=== PATIENT | female | born 1970 | race Caucasian/White ===

== ENCOUNTER 2016-09-18 06:59 | Day surgery (SDC) | payer OTHER ==
[~2016-09-18] VITALS: Ht 170.2 cm; Wt 99.8 kg
[~2016-09-18 06:59] MED LIST: AMBIEN CR12.5 MG PO; AMBIEN10 MG PO; ATIVAN1 MG PO; BENADRYL25 MG PO; BIAXIN500 MG PO; BIOTIN2500 MCG PO; CALTRATE 600600 MG PO; CARAFATE1 GM PO; CELLCEPT500 MG PO; CIPRO250 MG PO; CLARITIN10 MG PO; CLEOCIN300 MG PO; COUMADIN10 MG PO; COUMADIN7.5 MG PO; CYMBALTA60 MG PO; Cellcept PO; Claritin,Alavart PO; DAILY VITAMIN1 EAC8 PO; DESYREL100 MG PO; DEXILANT60 MG PO; Ditropan PO; ELAVIL25 MG PO; ERGOCALCIF50000 UNIT PO; FLINTSTONES M300 MCG PO; FLOMAX0.4 MG PO; HYDROCODON-ACE1 EAC8 PO; LEVOTHYROXINE100 MCG PO; LOVENOX120 MG/0.8 SC; Levothroid,Synthroid PO; MAXALT10 MG PO; METHOCARBAMOL500 MG PO; NORCO 5/3251 TABLET PO; OXYCODONE HCL10 MG PO; PERCOCET 5/31 TABLET PO; PREDNISONE10 MG PO; PROGRAF1 MG PO; PROMETHAZINE HC25 M1 PO; PSEUDOEPHEDRINE30 MG PO; Percocet 7.5/325,End PO; Prograf PO; SALINE NOSE SPR45 M1 BOTH NARES; SUDAFED 12-HOU120 MG PO; TIZANIDINE HCL2 MG PO; TOPAMAX50 MG PO; TROKENDI XR200 MG PO; VERAPAMIL HCL120 M1 PO; VITAMIN B125000 MCG PO; VITAMIN D5000 UNIT PO; VOLTAREN 1% GE100 GM TP; WARFARIN SODIU7.5 MG PO; WARFARIN SODIUM10 MG PO; ZITHROMAX Z-PA250 MG PO; ZOFRAN4 MG PO
[2016-09-18 08:06] VITALS: BP 112/59
[2016-09-18 10:59] VITALS: BP 136/80
[2016-09-18 12:00] VITALS: BP 11/56; BP 111/56
[2016-09-18 14:10] VITALS: BP 115/67
== END 2016-09-18 14:30 | disposition home or self-care (01) ==
LOC: SDC 06:59
DX: N20.2 Calculus of kidney with calculus of ureter (principal); M54.5 Low back pain; K21.9 Gastro-esophageal reflux disease without esophagitis
CPT/HCPCS: 74000; 76000; 85610; C1769; C1876; C1894; J1100; J1580; J1885; J2250; J2405; J3010; J7050

== ENCOUNTER 2016-10-06 14:53 | Inpatient (IN) | payer OTHER ==
[~2016-10-06] VITALS: Ht 172.7 cm; Wt 100.3 kg
[2016-10-06 15:25] LABS: EOSINOPHIL (%) 0.7 % (0-5); EOSINOPHIL COUNT 0.1 K/uL (0-0.3); HEMATOCRIT 43.2 % (36.0-46.0); IMMATURE GRANULOCYTE (%) 0.3 % (0.0-0.7); IMMATURE GRANULOCYTE COUNT 0.2 K/uL; LYMPHOCYTE COUNT 1.6 K/uL (1.0-2.8); MCH 29.3 PG (29.0-34.0); MCHC 32.9 G/DL (30.0-36.0); MCV 89.1 FL (83-99); MEAN PLAT.VOLUME 11.5 uM^3 (9.5-12.4); MONOCYTE (%) 6.7 % (3-12); MONOCYTE COUNT 0.5 K/uL (0-0.8); NEUTROPHIL COUNT 4.7 K/uL (1.8-6.4); PLATELET COUNT 265 K/uL (156-360); RBC DIS.WIDTH-SD 44.5 % (39-53); RED BLOOD COUNT 4.85 M/uL (3.80-5.20)
[2016-10-06 15:32] LABS: WHITE BLOOD COUNT 6.9 K/uL (4.1-10.2)
[2016-10-06 15:33] LABS: CHLORIDE 107 mEq/L (99-109); POTASSIUM 4.3 mEq/L (3.7-5.4); SODIUM 139 mEq/L (136-147)
[2016-10-06 15:35] LABS: GLUCOSE 177 mg/dL (70-99)
[2016-10-06 15:36] LABS: ANION GAP 11 MEQ/L (2-14)
[2016-10-06 15:39] LABS: GFR ESTIMATE (CALCULATED) > 59 mL/min/
[2016-10-06 15:40] LABS: UREA NITROGEN (BUN) 23 mg/dL (9-23)
[2016-10-06 16:58] LABS: PTT 39.5 (25-32)
[2016-10-06 17:43] LABS: PROTHROMBIN TIME 31.2 (9.2-11.2)
[2016-10-06] MEDS ORDERED: COUMADIN5 MG PO (19:46)
[2016-10-06] MEDS ORDERED: PERCOCET 7.51 TABLET PO (19:47)
[2016-10-06] MEDS ORDERED: ZOFRAN4 MG PO (19:48)
[2016-10-06 19:52] LABS: COLOR RED ((YELLOW)); SPECIFIC GRAVITY 1.015 (1.000-1.030)
[2016-10-06 19:53] LABS: ADD MIUA? YES; BILIRUBIN NEGATIVE; BLOOD LARGE; GLUCOSE (STRIP) NEGATIVE; KETONES MODERATE; LEUKOCYTES NEGATIVE; NITRITE NEGATIVE; PH, URINE 6.5 (5-8); PROTEIN (STRIP) 300; UROBILINOGEN 0.2 MG/DL (0.2-1.0)
[2016-10-06 19:54] LABS: RED BLOOD CELLS TNTC /HPF (0-5); UCUL ADDED? YES
[2016-10-06 23:59] VITALS: BP 142/77
[2016-10-07 04:20] VITALS: BP 129/78
[2016-10-07 07:15] LABS: INTER. NORMALIZED RATIO 2.9
[2016-10-07 07:21] LABS: EOSINOPHIL (%) 4.2 % (0-5); EOSINOPHIL COUNT 0.3 K/uL (0-0.3); HEMATOCRIT 35.9 % (36.0-46.0); IMMATURE GRANULOCYTE (%) 0.2 % (0.0-0.7); LYMPHOCYTE COUNT 2.6 K/uL (1.0-2.8); MCH 29.8 PG (29.0-34.0); MCHC 33.1 G/DL (30.0-36.0); MCV 89.8 FL (83-99); MONOCYTE (%) 11.1 % (3-12); MONOCYTE COUNT 0.7 K/uL (0-0.8); NEUTROPHIL (%) 44.6 % (45-76); NEUTROPHIL COUNT 2.9 K/uL (1.8-6.4); WHITE BLOOD COUNT 6.5 K/uL (4.1-10.2)
[2016-10-07 07:28] LABS: ALKALINE PHOSPHATASE 109 IU/L (3-129); ANION GAP 8 MEQ/L (2-14); CHLORIDE 113 MEQ/L (99-109); GFR ESTIMATE (CALCULATED) > 59 mL/min/; POTASSIUM 3.9 MEQ/L (3.7-5.4); SAMPLE HEMOLYSIS CHECK 0; SAMPLE ICTERIC CHECK 0; SAMPLE LIPEMIA CHECK 0; SODIUM 142 MEQ/L (136-147); TOTAL BILIRUBIN 0.5 MG/DL (0.0-1.0); UREA NITROGEN (BUN) 16 mg/dL (9-23)
[2016-10-07 07:29] LABS: GLUCOSE 107 mg/dL (70-99)
[2016-10-07 07:44] VITALS: BP 144/75
[2016-10-07 08:30] LABS: MEAN PLAT.VOLUME 11.7 uM^3 (9.5-12.4); PLAT.SUFFICIENCY ADEQUATE; PLATELET COUNT 208 K/uL (156-360); USER ID CL
[2016-10-07 11:41] VITALS: BP 124/63
[2016-10-07 11:59] LABS: URIC ACID 5.1 mg/dL (3.1-9.2)
[2016-10-07 15:41] VITALS: BP 127/67
[2016-10-07 23:22] VITALS: BP 143/86
[2016-10-08 06:22] LABS: EOSINOPHIL (%) 3.7 % (0-5); EOSINOPHIL COUNT 0.2 K/uL (0-0.3); IMMATURE GRANULOCYTE (%) 0.2 % (0.0-0.7); LYMPHOCYTE COUNT 2.6 K/uL (1.0-2.8); MCH 28.8 PG (29.0-34.0); MCHC 31.8 G/DL (30.0-36.0); MCV 90.5 FL (83-99); MEAN PLAT.VOLUME 11.5 uM^3 (9.5-12.4); MONOCYTE COUNT 0.7 K/uL (0-0.8); NEUTROPHIL COUNT 2.7 K/uL (1.8-6.4); PLATELET COUNT 207 K/uL (156-360); RBC DIS.WIDTH-CV 14.1 % (11.8-14.6); RBC DIS.WIDTH-SD 46.6 % (39-53); WHITE BLOOD COUNT 6.2 K/uL (4.1-10.2)
[2016-10-08 06:47] LABS: ANION GAP 5 MEQ/L (2-14); CHLORIDE 115 MEQ/L (99-109); GFR ESTIMATE (CALCULATED) > 59 mL/min/; GLUCOSE 108 mg/dL (70-99); POTASSIUM 3.7 MEQ/L (3.7-5.4); SAMPLE HEMOLYSIS CHECK 0; SAMPLE ICTERIC CHECK 0; SAMPLE LIPEMIA CHECK 0; SODIUM 143 MEQ/L (136-147); UREA NITROGEN (BUN) 8 mg/dL (9-23)
[2016-10-08 07:00] LABS: INTER. NORMALIZED RATIO 2.9; PROTHROMBIN TIME 30.1 (9.2-11.2)
[2016-10-08 07:14] VITALS: BP 147/75
[2016-10-08 16:20] VITALS: BP 117/67
[2016-10-09] VITALS: BP 110/64
[2016-10-09 07:38] VITALS: BP 116/58
[2016-10-09 10:24] LABS: PROTHROMBIN TIME 20.5 (9.2-11.2)
[2016-10-09 11:20] LABS: HEMATOCRIT 36.7 % (36.0-46.0); MCV 90.6 FL (83-99)
[2016-10-09 18:29] VITALS: BP 120/81
[2016-10-09 22:58] VITALS: BP 134/63
[2016-10-10 03:24] VITALS: BP 115/58
[2016-10-10 07:15] VITALS: BP 144/89
[2016-10-10 07:25] LABS: EOSINOPHIL (%) 2.7 % (0-5); EOSINOPHIL COUNT 0.2 K/uL (0-0.3); HEMATOCRIT 37.9 % (36.0-46.0); IMMATURE GRANULOCYTE (%) 0.1 % (0.0-0.7); LYMPHOCYTE COUNT 3.3 K/uL (1.0-2.8); MCH 28.3 PG (29.0-34.0); MCHC 31.1 G/DL (30.0-36.0); MCV 90.9 FL (83-99); MEAN PLAT.VOLUME 11.7 uM^3 (9.5-12.4); MONOCYTE (%) 9.6 % (3-12); MONOCYTE COUNT 0.7 K/uL (0-0.8); NEUTROPHIL (%) 39.8 % (45-76); NEUTROPHIL COUNT 2.8 K/uL (1.8-6.4); PLATELET COUNT 206 K/uL (156-360); RBC DIS.WIDTH-CV 14.4 % (11.8-14.6); RBC DIS.WIDTH-SD 46.9 % (39-53); RED BLOOD COUNT 4.17 M/uL (3.80-5.20)
[2016-10-10 07:27] LABS: INTER. NORMALIZED RATIO 1.6; PROTHROMBIN TIME 16.1 (9.2-11.2)
[2016-10-10 07:51] LABS: ALKALINE PHOSPHATASE 108 IU/L (3-129); ANION GAP 8 MEQ/L (2-14); CHLORIDE 110 MEQ/L (99-109); GFR ESTIMATE (CALCULATED) > 59 mL/min/; GLUCOSE 94 mg/dL (70-99); POTASSIUM 3.6 MEQ/L (3.7-5.4); SAMPLE HEMOLYSIS CHECK 0; SAMPLE ICTERIC CHECK 0; SAMPLE LIPEMIA CHECK 0; SODIUM 144 MEQ/L (136-147); TOTAL BILIRUBIN 0.6 MG/DL (0.0-1.0); UREA NITROGEN (BUN) 6 mg/dL (9-23)
[2016-10-10 11:18] VITALS: BP 130/69
[2016-10-10 15:50] VITALS: BP 110/76
== END 2016-10-10 16:06 | disposition home or self-care (01) | DRG 854 ==
LOC: EME 14:53 → EDOF 22:09 → 5EAST 22:09
PROVIDERS: Emergency Medicine; Hospitalist; Internal Medicine
PROC: BT161ZZ Fluoroscopy of Right Ureter using Low Osmolar Contrast (ICD-10-PCS; principal; 2016-10-08)
PROC: 0TC68ZZ Extirpation of Matter from Right Ureter, Via Natural or Artificial Opening Endoscopic (ICD-10-PCS; principal; 2016-10-08)
PROC: 0TJB8ZZ Inspection of Bladder, Via Natural or Artificial Opening Endoscopic (ICD-10-PCS; principal; 2016-10-08)
PROC: 0TJ94ZZ Inspection of Ureter, Percutaneous Endoscopic Approach (ICD-10-PCS; principal; 2016-10-08)
DX: A41.9 Sepsis, unspecified organism (principal); N20.1 Calculus of ureter; N13.30 Unspecified hydronephrosis; Z94.4 Liver transplant status; F33.9 Major depressive disorder, recurrent, unspecified; N39.0 Urinary tract infection, site not specified; I95.9 Hypotension, unspecified; E03.9 Hypothyroidism, unspecified; M81.0 Age-related osteoporosis without current pathological fracture; E66.9 Obesity, unspecified; M19.90 Unspecified osteoarthritis, unspecified site; I10 Essential (primary) hypertension; K21.9 Gastro-esophageal reflux disease without esophagitis; R31.0 Gross hematuria; N20.0 Calculus of kidney; R73.9 Hyperglycemia, unspecified; T45.1X5A Adverse effect of antineoplastic and immunosuppressive drugs, initial encounter; Z79.01 Long term (current) use of anticoagulants; G43.909 Migraine, unspecified, not intractable, without status migrainosus; Z68.33 Body mass index [BMI] 33.0-33.9, adult; Z98.84 Bariatric surgery status; Z88.3 Allergy status to other anti-infective agents; Z88.1 Allergy status to other antibiotic agents; Z86.718 Personal history of other venous thrombosis and embolism; Z86.711 Personal history of pulmonary embolism; Z82.49 Family history of ischemic heart disease and other diseases of the circulatory system; Z66 Do not resuscitate
CPT/HCPCS: 73560; 74176; 74420; 80048; 80053; 81003; 82365 90; 83605; 84550; 85014; 85018; 85025; 85610; 85730; 87040; 87086; 93005; 94010; 99202; 99281; 99285; C1876; J0330; J0744; J1170; J2270; J2405; J2543; J2765; J3010; J3370; J7030; J7050; J7507; J7512; J7517

== ENCOUNTER 2016-10-25 14:20 | Inpatient (IN) | payer OTHER ==
[~2016-10-25] VITALS: Ht 172.7 cm; Wt 97.9 kg
[~2016-10-25 14:20] MED LIST changes: +COUMADIN5 MG PO; +PERCOCET 7.51 TABLET PO
[2016-10-25 14:53] LABS: HEMATOCRIT 36.7 % (36.0-46.0); MCH 29.3 PG (29.0-34.0); MCHC 32.4 G/DL (30.0-36.0); MCV 90.4 FL (83-99); MEAN PLAT.VOLUME 11.6 uM^3 (9.5-12.4); PLATELET COUNT 180 K/uL (156-360); RBC DIS.WIDTH-CV 13.4 % (11.8-14.6); RBC DIS.WIDTH-SD 43.3 % (39-53); RED BLOOD COUNT 4.06 M/uL (3.80-5.20)
[2016-10-25 14:54] LABS: WHITE BLOOD COUNT 16.6 K/uL (4.1-10.2)
[2016-10-25 15:02] LABS: CHLORIDE 105 mEq/L (99-109); POTASSIUM 3.6 mEq/L (3.7-5.4); SODIUM 136 mEq/L (136-147)
[2016-10-25 15:03] LABS: GLUCOSE 181 mg/dL (70-99)
[2016-10-25 15:05] LABS: ANION GAP 12 MEQ/L (2-14)
[2016-10-25 15:07] LABS: GFR ESTIMATE (CALCULATED) > 59 mL/min/
[2016-10-25 15:08] LABS: UREA NITROGEN (BUN) 21 mg/dL (9-23)
[2016-10-25 16:01] LABS: ADD MIUA? YES; BILIRUBIN SMALL; BLOOD LARGE; COLOR AMBER ((YELLOW)); GLUCOSE (STRIP) NEGATIVE; KETONES NEGATIVE; LEUKOCYTES NEGATIVE; NITRITE NEGATIVE; PROTEIN (STRIP) 100; SPECIFIC GRAVITY 1.025 (1.000-1.030)
[2016-10-25 16:29] LABS: BACTERIA RARE /HPF; CALCIUM OXALATE CRYSTALS 2+ /HPF; EPITHELIAL CELLS RARE /HPF; MUCUS 1+ /LPF; RED BLOOD CELLS TNTC /HPF (0-5); UCUL ADDED? NO; WHITE BLOOD CELLS 20-30 /HPF (0-5)
[2016-10-25 16:46] LABS: TOTAL BILIRUBIN 1.8 mg/dL (0.0-1.0)
[2016-10-25 16:47] LABS: ALKALINE PHOSPHATASE 151 IU/L (3-129)
[2016-10-25 16:50] LABS: DIRECT BILIRUBIN 1.1 mg/dL (0.0-0.3)
[2016-10-25 16:51] LABS: LIPASE 414 U/L (1.0-51.0)
[2016-10-25 19:46] LABS: INTER. NORMALIZED RATIO 1.6; PROTHROMBIN TIME 16.3 (9.2-11.2); PTT 34.5 (25-32)
[2016-10-25 20:07] VITALS: BP 138/62
[2016-10-25 22:57] VITALS: BP 105/55
[2016-10-26 03:31] LABS: INFLUENZA A VIRAL ANTIGEN NEGATIVE; INFLUENZA B VIRAL ANTIGEN NEGATIVE
[2016-10-26 03:33] VITALS: BP 107/52
[2016-10-26 07:35] LABS: INTER. NORMALIZED RATIO 1.5; PROTHROMBIN TIME 15.9 (9.2-11.2)
[2016-10-26 07:36] LABS: EOSINOPHIL (%) 0.6 % (0-5); EOSINOPHIL COUNT 0.1 K/uL (0-0.3); HEMATOCRIT 30.9 % (36.0-46.0); IMMATURE GRANULOCYTE (%) 0.4 % (0.0-0.7); IMMATURE GRANULOCYTE COUNT 0.1 K/uL; LYMPHOCYTE COUNT 1.1 K/uL (1.0-2.8); MCH 29.4 PG (29.0-34.0); MCV 91.7 FL (83-99); MEAN PLAT.VOLUME 11.2 uM^3 (9.5-12.4); MONOCYTE (%) 7.9 % (3-12); MONOCYTE COUNT 0.9 K/uL (0-0.8); NEUTROPHIL (%) 81.7 % (45-76); NEUTROPHIL COUNT 9.4 K/uL (1.8-6.4); PLATELET COUNT 142 K/uL (156-360); RBC DIS.WIDTH-CV 13.6 % (11.8-14.6); RBC DIS.WIDTH-SD 45.4 % (39-53); RED BLOOD COUNT 3.37 M/uL (3.80-5.20)
[2016-10-26 07:39] LABS: WHITE BLOOD COUNT 11.5 K/uL (4.1-10.2)
[2016-10-26 07:44] LABS: ALKALINE PHOSPHATASE 105 IU/L (3-129); ANION GAP 8 MEQ/L (2-14); CHLORIDE 110 MEQ/L (99-109); GFR ESTIMATE (CALCULATED) > 59 mL/min/; POTASSIUM 3.2 MEQ/L (3.7-5.4); SAMPLE HEMOLYSIS CHECK 0; SAMPLE ICTERIC CHECK 0; SAMPLE LIPEMIA CHECK 0; SODIUM 139 MEQ/L (136-147); UREA NITROGEN (BUN) 16 mg/dL (9-23)
[2016-10-26 08:02] LABS: DIRECT BILIRUBIN 0.6 mg/dL (0.0-0.3); GLUCOSE 109 mg/dL (70-99); TOTAL BILIRUBIN 1.1 MG/DL (0.0-1.0)
[2016-10-26 08:13] VITALS: BP 129/45
[2016-10-26 12:13] VITALS: BP 121/55
[2016-10-26 16:18] VITALS: BP 117/58
[2016-10-26 19:31] VITALS: BP 110/55
[2016-10-26 20:19] LABS: METH RESISTANT S AUREUS PCR POSITIVE (NEGATIVE)
[2016-10-26 20:21] LABS: PROBE CHECK PASS
[2016-10-26 23:20] VITALS: BP 139/59
[2016-10-27 03:57] VITALS: BP 102/55
[2016-10-27 08:14] VITALS: BP 123/62
[2016-10-27 08:20] LABS: HEMATOCRIT 29.4 % (36.0-46.0); MCH 29.5 PG (29.0-34.0); MCHC 32.3 G/DL (30.0-36.0); MCV 91.3 FL (83-99); MEAN PLAT.VOLUME 11.4 uM^3 (9.5-12.4); PLATELET COUNT 173 K/uL (156-360); RBC DIS.WIDTH-CV 13.5 % (11.8-14.6); RBC DIS.WIDTH-SD 44.9 % (39-53); RED BLOOD COUNT 3.22 M/uL (3.80-5.20)
[2016-10-27 08:37] LABS: INTER. NORMALIZED RATIO 2.3
[2016-10-27 08:39] LABS: PROTHROMBIN TIME 23.9 (9.2-11.2)
[2016-10-27 08:45] LABS: ALKALINE PHOSPHATASE 107 IU/L (3-129); ANION GAP 8 MEQ/L (2-14); CHLORIDE 112 MEQ/L (99-109); GFR ESTIMATE (CALCULATED) > 59 mL/min/; GLUCOSE 107 mg/dL (70-99); POTASSIUM 3.4 MEQ/L (3.7-5.4); SAMPLE HEMOLYSIS CHECK 0; SAMPLE ICTERIC CHECK 0; SAMPLE LIPEMIA CHECK 0; SODIUM 141 MEQ/L (136-147); UREA NITROGEN (BUN) 9 mg/dL (9-23)
[2016-10-27 08:49] LABS: TOTAL BILIRUBIN 0.7 MG/DL (0.0-1.0)
[2016-10-27 11:24] VITALS: BP 139/73
[2016-10-27 15:37] VITALS: BP 138/79
[2016-10-27 21:22] VITALS: BP 123/63
[2016-10-27 23:51] VITALS: BP 133/82
[2016-10-28 04:05] VITALS: BP 127/66
[2016-10-28 07:00] LABS: HEMATOCRIT 29.9 % (36.0-46.0); MCH 29.1 PG (29.0-34.0); MCHC 32.4 G/DL (30.0-36.0); MCV 89.8 FL (83-99); MEAN PLAT.VOLUME 11.2 uM^3 (9.5-12.4); PLATELET COUNT 198 K/uL (156-360); RBC DIS.WIDTH-CV 13.2 % (11.8-14.6); RBC DIS.WIDTH-SD 43.3 % (39-53); RED BLOOD COUNT 3.33 M/uL (3.80-5.20); WHITE BLOOD COUNT 9.5 K/uL (4.1-10.2)
[2016-10-28 07:21] LABS: INTER. NORMALIZED RATIO 3.2; PROTHROMBIN TIME 33.8 (9.2-11.2)
[2016-10-28 07:25] LABS: ANION GAP 8 MEQ/L (2-14); CHLORIDE 113 MEQ/L (99-109); GFR ESTIMATE (CALCULATED) > 59 mL/min/; GLUCOSE 96 mg/dL (70-99); LIPASE 16 U/L (1.0-51.0); POTASSIUM 3.4 MEQ/L (3.7-5.4); SAMPLE HEMOLYSIS CHECK 0; SAMPLE ICTERIC CHECK 0; SAMPLE LIPEMIA CHECK 0; SODIUM 141 MEQ/L (136-147); UREA NITROGEN (BUN) 8 mg/dL (9-23)
[2016-10-28 07:29] LABS: EOSINOPHIL (%) 1.5 % (0-5); EOSINOPHIL COUNT 0.1 K/uL (0-0.3); IMMATURE GRANULOCYTE (%) 0.2 % (0.0-0.7); LYMPHOCYTE COUNT 1.7 K/uL (1.0-2.8); MONOCYTE (%) 6.9 % (3-12); MONOCYTE COUNT 0.7 K/uL (0-0.8); NEUTROPHIL (%) 73.2 % (45-76)
[2016-10-28 07:57] VITALS: BP 132/60
[2016-10-28 10:53] LABS: THEOPHYLLINE < 2.5 MCG/ML (10-20)
[2016-10-28 12:11] VITALS: BP 120/59
[2016-10-28 16:05] VITALS: BP 146/69
[2016-10-28 20:00] VITALS: BP 143/63
[2016-10-28 23:46] VITALS: BP 134/61
[2016-10-29] VITALS (9 sets, daily range): BP systolic 105–131; BP diastolic 56–80
[2016-10-29 09:22] LABS: INTER. NORMALIZED RATIO 2.7; PROTHROMBIN TIME 27.9 (9.2-11.2)
[2016-10-30 04:35] VITALS: BP 118/65
[2016-10-30 06:57] LABS: EOSINOPHIL (%) 0.1 % (0-5); HEMATOCRIT 30.6 % (36.0-46.0); IMMATURE GRANULOCYTE (%) 1.1 % (0.0-0.7); IMMATURE GRANULOCYTE COUNT 0.1 K/uL; INSTRUMENT ABS NEUTROPHIL CT 5.5 K/uL; LYMPHOCYTE COUNT 1.2 K/uL (1.0-2.8); MCH 28.8 PG (29.0-34.0); MEAN PLAT.VOLUME 10.6 uM^3 (9.5-12.4); MONOCYTE (%) 7.1 % (3-12); MONOCYTE COUNT 0.5 K/uL (0-0.8); NEUTROPHIL (%) 75.4 % (45-76); NEUTROPHIL COUNT 5.5 K/uL (1.8-6.4); PLATELET COUNT 246 K/uL (156-360); RBC DIS.WIDTH-CV 13.2 % (11.8-14.6); RBC DIS.WIDTH-SD 43.7 % (39-53); WHITE BLOOD COUNT 7.3 K/uL (4.1-10.2)
[2016-10-30 07:00] LABS: INTER. NORMALIZED RATIO 1.1; PROTHROMBIN TIME 11.5 (9.2-11.2)
[2016-10-30 07:42] LABS: ANION GAP 9 MEQ/L (2-14); CHLORIDE 110 MEQ/L (99-109); GFR ESTIMATE (CALCULATED) > 59 mL/min/; POTASSIUM 3.7 MEQ/L (3.7-5.4); SAMPLE HEMOLYSIS CHECK 0; SAMPLE ICTERIC CHECK 0; SAMPLE LIPEMIA CHECK 0; SODIUM 141 MEQ/L (136-147); UREA NITROGEN (BUN) 7 mg/dL (9-23)
[2016-10-30 08:02] LABS: GLUCOSE 151 mg/dL (70-99)
[2016-10-30 08:07] VITALS: BP 148/92
[2016-10-30 12:32] VITALS: BP 118/76
[2016-10-30] MEDS ORDERED: ZYVOX600 MG PO (12:42)
[2016-10-30 15:53] VITALS: BP 138/88
[2016-10-30 19:30] VITALS: BP 136/72
[2016-10-30 23:14] VITALS: BP 140/82
[2016-10-31 03:21] VITALS: BP 135/77
[2016-10-31 07:15] VITALS: BP 173/83
[2016-10-31 07:40] VITALS: BP 138/86
[2016-10-31 08:28] LABS: INTER. NORMALIZED RATIO 1.1; PROTHROMBIN TIME 11.1 (9.2-11.2)
[2016-10-31 11:30] VITALS: BP 132/80
[2016-10-31 16:56] VITALS: BP 142/78
[2016-10-31 20:00] VITALS: BP 133/60
[2016-11-01] VITALS: BP 122/60
[2016-11-01 04:00] VITALS: BP 147/71
[2016-11-01 07:43] LABS: HEMATOCRIT 33.9 % (36.0-46.0); MCH 28.3 PG (29.0-34.0); MCHC 30.7 G/DL (30.0-36.0); MCV 92.1 FL (83-99); RBC DIS.WIDTH-CV 13.2 % (11.8-14.6); RBC DIS.WIDTH-SD 44.6 % (39-53); RED BLOOD COUNT 3.68 M/uL (3.80-5.20)
[2016-11-01 07:55] LABS: MEAN PLAT.VOLUME 10.4 uM^3 (9.5-12.4)
[2016-11-01 07:58] VITALS: BP 132/74
[2016-11-01 07:59] LABS: ANION GAP 9 MEQ/L (2-14); CHLORIDE 109 MEQ/L (99-109); GFR ESTIMATE (CALCULATED) > 59 mL/min/; MAGNESIUM 1.3 mg/dl (1.3-2.7); POTASSIUM 3.9 MEQ/L (3.7-5.4); SAMPLE HEMOLYSIS CHECK 0; SAMPLE ICTERIC CHECK 0; SAMPLE LIPEMIA CHECK 0; SODIUM 142 MEQ/L (136-147); UREA NITROGEN (BUN) 8 mg/dL (9-23)
[2016-11-01 08:05] LABS: INTER. NORMALIZED RATIO 1.2; PLATELET COUNT 323 K/uL (156-360); PROTHROMBIN TIME 12.5 (9.2-11.2)
[2016-11-01 08:06] LABS: GLUCOSE 106 mg/dL (70-99)
[2016-11-01 10:54] VITALS: BP 122/66
[2016-11-01] MEDS ORDERED: OXYCODONE HCL5 MG PO (11:54)
[2016-11-01] MEDS ORDERED: FLONASE16 G1 BOTH NARES (11:54)
== END 2016-11-01 15:48 | disposition home health service (06) | DRG 603 ==
LOC: EME 14:20 → 2EAST 18:21 → EDOF 18:21 → 2EAST 19:59
PROVIDERS: Hospitalist; Internal Medicine; Internal Medicine Infectious Disease; Nurse Practitioner Family
DX: L03.317 Cellulitis of buttock (principal); N39.0 Urinary tract infection, site not specified; Z94.4 Liver transplant status; L02.31 Cutaneous abscess of buttock; R25.1 Tremor, unspecified; G43.909 Migraine, unspecified, not intractable, without status migrainosus; F32.9 Major depressive disorder, single episode, unspecified; E03.9 Hypothyroidism, unspecified; R31.9 Hematuria, unspecified; E66.9 Obesity, unspecified; E83.51 Hypocalcemia; M81.0 Age-related osteoporosis without current pathological fracture; D69.6 Thrombocytopenia, unspecified; I10 Essential (primary) hypertension; D64.9 Anemia, unspecified; R74.8 Abnormal levels of other serum enzymes; E87.6 Hypokalemia; B95.62 Methicillin resistant Staphylococcus aureus infection as the cause of diseases classified elsewhere; R10.31 Right lower quadrant pain; G89.29 Other chronic pain; R33.9 Retention of urine, unspecified; Z95.828 Presence of other vascular implants and grafts; Z86.711 Personal history of pulmonary embolism; Z79.01 Long term (current) use of anticoagulants; Z86.718 Personal history of other venous thrombosis and embolism; Z98.84 Bariatric surgery status; Z88.1 Allergy status to other antibiotic agents; Z88.8 Allergy status to other drugs, medicaments and biological substances; E73.9 Lactose intolerance, unspecified; Z86.19 Personal history of other infectious and parasitic diseases
CPT/HCPCS: 74177; 80048; 80053; 80076; 80197 90; 80198; 80202; 81003; 83605; 83690; 83735; 85025; 85027; 85610; 85730; 86850; 86900; 86901; 87040; 87070; 87075; 87077; 87147; 87186; 87205; 87502; 87641; 99281; 99285; G0480; J0330; J1100; J1170; J1200; J1885; J2270; J2405; J2543; J3010; J3370; J3430; J7030; J7050; J7507; J7512; J7517; P9017

== ENCOUNTER → 2016-11-13 | Outpatient (CLI) | payer OTHER ==
[~2016-11-13] MED LIST changes: +FLONASE16 G1 BOTH NARES; +OXYCODONE HCL5 MG PO; +ZYVOX600 MG PO
== END | disposition home or self-care (01) ==
LOC: AMB 09:00
DX: L02.31 Cutaneous abscess of buttock (principal); B95.62 Methicillin resistant Staphylococcus aureus infection as the cause of diseases classified elsewhere; Z92.25 Personal history of immunosuppression therapy; Z94.4 Liver transplant status
CPT/HCPCS: 99211

== ENCOUNTER → 2016-11-20 | Outpatient (CLI) | payer OTHER ==
[~2016-11-20] MED LIST changes: +AMOX TR-K CLV1 EAC4 PO; +EXTRA STRENGTH500 M1 PO; +INDERAL80 MG PO; +NASAL DECONGEST30 M4 PO; +ONDANSETRON HCL4 MG PO; +VERAPAMIL HCL120 M2 PO
== END | disposition home or self-care (01) ==
LOC: AMB 12:30
DX: Z09 Encounter for follow-up examination after completed treatment for conditions other than malignant neoplasm (principal); L02.31 Cutaneous abscess of buttock; B95.62 Methicillin resistant Staphylococcus aureus infection as the cause of diseases classified elsewhere
CPT/HCPCS: 99211

== ENCOUNTER 2016-12-02 23:07 | Emergency (ER) | payer OTHER ==
[~2016-12-02] VITALS: Ht 172.7 cm; Wt 91.2 kg
[2016-12-03 00:05] LABS: HEMATOCRIT 44.1 % (36.0-46.0); MCH 27.9 PG (29.0-34.0); MCHC 31.3 G/DL (30.0-36.0); MCV 89.3 FL (83-99); RBC DIS.WIDTH-CV 13.2 % (11.8-14.6); RBC DIS.WIDTH-SD 42.8 % (39-53); RED BLOOD COUNT 4.94 M/uL (3.80-5.20); WHITE BLOOD COUNT 12.2 K/uL (4.1-10.2)
[2016-12-03 00:11] LABS: MEAN PLAT.VOLUME 11.8 uM^3 (9.5-12.4); PLATELET COUNT 277 K/uL (156-360)
[2016-12-03 00:13] LABS: CHLORIDE 109 mEq/L (99-109); POTASSIUM 3.9 mEq/L (3.7-5.4); SODIUM 138 mEq/L (136-147)
[2016-12-03 00:15] LABS: GLUCOSE 132 mg/dL (70-99)
[2016-12-03 00:16] LABS: ANION GAP 12 MEQ/L (2-14)
[2016-12-03 00:19] LABS: GFR ESTIMATE (CALCULATED) 57 mL/min/; UREA NITROGEN (BUN) 17 mg/dL (9-23)
[2016-12-03 01:36] LABS: ADD MIUA? YES; BILIRUBIN NEGATIVE; BLOOD LARGE; GLUCOSE (STRIP) NEGATIVE; KETONES 5; LEUKOCYTES TRACE; NITRITE NEGATIVE; PROTEIN (STRIP) 100; SPECIFIC GRAVITY 1.006 (1.000-1.030); UROBILINOGEN 0.2 MG/DL (0.2-1.0)
[2016-12-03 01:37] LABS: COLOR RED ((YELLOW))
[2016-12-03 01:57] LABS: BACTERIA 1+ /HPF; CASTS NONE SEEN /LPF; CRYSTALS NONE SEEN; EPITHELIAL CELLS RARE /HPF; MUCUS NONE SEEN /LPF; RED BLOOD CELLS TNTC /HPF (0-5); UCUL ADDED? NO
[2016-12-03] MEDS ORDERED: ZOFRAN4 MG PO (02:02)
[2016-12-03] MEDS ORDERED: CIPRO500 MG PO (02:02)
[2016-12-03 03:17] VITALS: BP 111/73
== END 2016-12-03 03:28 | disposition home or self-care (01) ==
LOC: EME 23:07
DX: N30.00 Acute cystitis without hematuria (principal); E86.0 Dehydration; R11.2 Nausea with vomiting, unspecified; R19.7 Diarrhea, unspecified; Z94.4 Liver transplant status; Z98.84 Bariatric surgery status; Z88.2 Allergy status to sulfonamides; Z88.1 Allergy status to other antibiotic agents
CPT/HCPCS: 80048; 81003; 85027; 99281; 99285; J2405; J7030

== ENCOUNTER 2016-12-28 08:00 | Emergency (ER) | payer OTHER ==
[~2016-12-28] VITALS: Ht 172.7 cm; Wt 93.9 kg
[~2016-12-28 08:00] MED LIST changes: +CIPRO500 MG PO
[2016-12-28 09:08] LABS: EOSINOPHIL (%) 0.4 % (0-5); EOSINOPHIL COUNT 0.1 K/uL (0-0.3); HEMATOCRIT 33.8 % (36.0-46.0); IMMATURE GRANULOCYTE (%) 0.7 % (0.0-0.7); IMMATURE GRANULOCYTE COUNT 0.1 K/uL; INSTRUMENT ABS NEUTROPHIL CT 12.6 K/uL; LYMPHOCYTE COUNT 1.5 K/uL (1.0-2.8); MCH 27.2 PG (29.0-34.0); MCHC 31.1 G/DL (30.0-36.0); MCV 87.6 FL (83-99); MONOCYTE (%) 8.6 % (3-12); MONOCYTE COUNT 1.4 K/uL (0-0.8); NEUTROPHIL (%) 80.5 % (45-76); NEUTROPHIL COUNT 12.6 K/uL (1.8-6.4); PLATELET COUNT 221 K/uL (156-360); RBC DIS.WIDTH-CV 13.7 % (11.8-14.6); RBC DIS.WIDTH-SD 43.8 % (39-53); WHITE BLOOD COUNT 15.7 K/uL (4.1-10.2)
[2016-12-28 09:09] LABS: RED BLOOD COUNT 3.86 M/uL (3.80-5.20)
[2016-12-28 09:16] LABS: CHLORIDE 108 mEq/L (99-109); POTASSIUM 3.8 mEq/L (3.7-5.4); SODIUM 135 mEq/L (136-147)
[2016-12-28 09:17] LABS: GLUCOSE 132 mg/dL (70-99)
[2016-12-28 09:19] LABS: ANION GAP 8 MEQ/L (2-14)
[2016-12-28 09:21] LABS: GFR ESTIMATE (CALCULATED) > 59 mL/min/
[2016-12-28 09:22] LABS: UREA NITROGEN (BUN) 13 mg/dL (9-23)
[2016-12-28 09:37] LABS: ADD MIUA? YES; BILIRUBIN SMALL; BLOOD LARGE; COLOR AMBER ((YELLOW)); GLUCOSE (STRIP) NEGATIVE; KETONES NEGATIVE; LEUKOCYTES TRACE; NITRITE NEGATIVE; PROTEIN (STRIP) 100; SPECIFIC GRAVITY 1.019 (1.000-1.030)
[2016-12-28 09:51] LABS: BACTERIA 2+ /HPF; CASTS NONE SEEN /LPF; CRYSTALS NONE SEEN; EPITHELIAL CELLS RARE /HPF; MUCUS NONE SEEN /LPF; RED BLOOD CELLS TNTC /HPF (0-5)
[2016-12-28] MEDS ORDERED: PERCOCET 5/31 TABLET PO (11:54)
[2016-12-28] MEDS ORDERED: CLEOCIN300 MG PO (11:54)
[2016-12-28 12:07] VITALS: BP 117/66
[2016-12-29] MEDS ORDERED: ZOFRAN ODT4 MG PO (13:12)
[2016-12-31] MEDS ORDERED: CLEOCIN300 MG PO (10:10)
[2016-12-31] MEDS ORDERED: ABILIFY5 MG PO (10:15)
== END 2016-12-28 12:18 | disposition home or self-care (01) ==
LOC: EME 08:00
PROVIDERS: Emergency Medicine
DX: L03.317 Cellulitis of buttock (principal); N20.1 Calculus of ureter; N39.0 Urinary tract infection, site not specified; Z87.442 Personal history of urinary calculi; Z86.718 Personal history of other venous thrombosis and embolism; Z86.711 Personal history of pulmonary embolism; Z79.01 Long term (current) use of anticoagulants; Z94.4 Liver transplant status
CPT/HCPCS: 74176; 80048; 81003; 85025; 99281; 99285; J2270; J7030

== ENCOUNTER 2016-12-29 09:11 | Emergency (ER) | payer OTHER ==
[~2016-12-29] VITALS: Ht 172.7 cm; Wt 94.4 kg
[2016-12-29 10:05] LABS: EOSINOPHIL (%) 0.9 % (0-5); EOSINOPHIL COUNT 0.1 K/uL (0-0.3); HEMATOCRIT 34.9 % (36.0-46.0); IMMATURE GRANULOCYTE (%) 0.6 % (0.0-0.7); IMMATURE GRANULOCYTE COUNT 0.1 K/uL; INSTRUMENT ABS NEUTROPHIL CT 13.1 K/uL; LYMPHOCYTE COUNT 1.7 K/uL (1.0-2.8); MCH 27.4 PG (29.0-34.0); MCHC 31.5 G/DL (30.0-36.0); MCV 86.8 FL (83-99); MEAN PLAT.VOLUME 11.3 uM^3 (9.5-12.4); MONOCYTE COUNT 1.1 K/uL (0-0.8); NEUTROPHIL COUNT 13.1 K/uL (1.8-6.4); PLATELET COUNT 256 K/uL (156-360); RBC DIS.WIDTH-CV 13.5 % (11.8-14.6); RBC DIS.WIDTH-SD 43.2 % (39-53); RED BLOOD COUNT 4.02 M/uL (3.80-5.20); WHITE BLOOD COUNT 16.2 K/uL (4.1-10.2)
[2016-12-29 10:41] LABS: CHLORIDE 107 mEq/L (99-109); POTASSIUM 3.9 mEq/L (3.7-5.4); SODIUM 135 mEq/L (136-147)
[2016-12-29 10:43] LABS: GLUCOSE 160 mg/dL (70-99)
[2016-12-29 10:44] LABS: ANION GAP 9 MEQ/L (2-14)
[2016-12-29 10:47] LABS: GFR ESTIMATE (CALCULATED) > 59 mL/min/; UREA NITROGEN (BUN) 11 mg/dL (9-23)
[2016-12-29] MEDS ORDERED: ZOFRAN ODT4 MG PO (13:12)
[2016-12-29 13:20] VITALS: BP 125/66
[2016-12-31] MEDS ORDERED: CLEOCIN300 MG PO (10:10)
[2016-12-31] MEDS ORDERED: ABILIFY5 MG PO (10:15)
== END 2016-12-29 13:33 | disposition home or self-care (01) ==
LOC: EME 09:11
DX: L03.317 Cellulitis of buttock (principal); N20.1 Calculus of ureter; Z86.718 Personal history of other venous thrombosis and embolism; Z86.711 Personal history of pulmonary embolism; Z79.01 Long term (current) use of anticoagulants; Z88.2 Allergy status to sulfonamides; Z88.8 Allergy status to other drugs, medicaments and biological substances; Z87.442 Personal history of urinary calculi
CPT/HCPCS: 76881; 80048; 85025; 99281; 99284

== ENCOUNTER → 2017-01-04 | Outpatient (CLI) | payer OTHER ==
[~2017-01-04] VITALS: Ht 172.7 cm; Wt 92.5 kg
[~2017-01-04] MED LIST changes: +ABILIFY5 MG PO; +ZOFRAN ODT4 MG PO
== END | disposition home or self-care (01) ==
LOC: AMB 07:30
PROC: 0TF4XZZ Fragmentation in Left Kidney Pelvis, External Approach (ICD-10-PCS; principal; 2017-01-04)
DX: N20.0 Calculus of kidney (principal); I10 Essential (primary) hypertension; E03.9 Hypothyroidism, unspecified; F41.8 Other specified anxiety disorders; K21.9 Gastro-esophageal reflux disease without esophagitis; R00.0 Tachycardia, unspecified; Z82.49 Family history of ischemic heart disease and other diseases of the circulatory system; Z83.79 Family history of other diseases of the digestive system
CPT/HCPCS: 74010; J2765

== ENCOUNTER 2017-03-08 13:07 | Day surgery (SDC) | payer OTHER ==
[~2017-03-08] VITALS: Ht 172.7 cm; Wt 93.0 kg
[~2017-03-08 13:07] MED LIST changes: +INDERAL40 MG PO; +VIBRAMYCIN100 MG PO
== END 2017-03-08 14:30 | disposition home or self-care (01) ==
LOC: PAIN 13:07 → SDC 13:30 → PAIN 13:30
PROC: 01513ZZ Destruction of Cervical Nerve, Percutaneous Approach (ICD-10-PCS; principal; 2017-03-08)
DX: M47.812 Spondylosis without myelopathy or radiculopathy, cervical region (principal); F41.9 Anxiety disorder, unspecified; Z94.4 Liver transplant status; K75.4 Autoimmune hepatitis; Z92.25 Personal history of immunosuppression therapy; K21.9 Gastro-esophageal reflux disease without esophagitis; E03.9 Hypothyroidism, unspecified; M46.1 Sacroiliitis, not elsewhere classified; Z98.84 Bariatric surgery status; Z88.1 Allergy status to other antibiotic agents; Z88.2 Allergy status to sulfonamides; Z88.8 Allergy status to other drugs, medicaments and biological substances
CPT/HCPCS: J1030; J1885; J2250; J3010; S0020

== ENCOUNTER 2017-03-25 11:04 | Day surgery (SDC) | payer OTHER ==
[~2017-03-25] VITALS: Ht 172.7 cm; Wt 92.5 kg
[~2017-03-25 11:04] MED LIST changes: +CENTRUM SILVER1 EAC3 PO
== END 2017-03-25 13:09 | disposition home or self-care (01) ==
LOC: PAIN 11:04
DX: M47.812 Spondylosis without myelopathy or radiculopathy, cervical region (principal); M54.2 Cervicalgia; R51 Headache; K75.4 Autoimmune hepatitis; F41.8 Other specified anxiety disorders; K21.9 Gastro-esophageal reflux disease without esophagitis; E03.9 Hypothyroidism, unspecified; E66.9 Obesity, unspecified; Z68.31 Body mass index [BMI] 31.0-31.9, adult; Z94.4 Liver transplant status; Z86.718 Personal history of other venous thrombosis and embolism; Z79.891 Long term (current) use of opiate analgesic; Z98.84 Bariatric surgery status
CPT/HCPCS: J1030; J2250; J3010; S0020

== ENCOUNTER 2017-04-29 07:41 | Day surgery (SDC) | payer OTHER ==
[~2017-04-29] VITALS: Ht 172.7 cm; Wt 92.5 kg
[~2017-04-29 07:41] MED LIST changes: +FLONASE ALLERG9.9 ML BOTH NARES; +XYZAL5 MG PO
== END 2017-04-29 09:20 | disposition home or self-care (01) ==
LOC: PAIN 07:41 → SDC 08:15 → PAIN 09:20
DX: M53.3 Sacrococcygeal disorders, not elsewhere classified (principal); M46.1 Sacroiliitis, not elsewhere classified; M47.816 Spondylosis without myelopathy or radiculopathy, lumbar region; M47.812 Spondylosis without myelopathy or radiculopathy, cervical region; M79.1 Myalgia; F41.8 Other specified anxiety disorders; K21.9 Gastro-esophageal reflux disease without esophagitis; E03.9 Hypothyroidism, unspecified; Z94.4 Liver transplant status; Z98.84 Bariatric surgery status; K75.4 Autoimmune hepatitis; Z79.891 Long term (current) use of opiate analgesic; Z79.01 Long term (current) use of anticoagulants
CPT/HCPCS: J1030; J2250; J2405; J3010; S0020

== ENCOUNTER 2017-05-11 06:39 | Inpatient (IN) | payer OTHER ==
[~2017-05-11] VITALS: Ht 172.7 cm; Wt 94.3 kg
[~2017-05-11 06:39] MED LIST changes: +FEOSOL325 MG PO; +LOVENOX100 MG/1 M SC; +PROTONIX40 MG PO
[2017-05-11 07:58] VITALS: BP 126/74
[2017-05-11 14:51] VITALS: BP 126/61
[2017-05-11 15:30] VITALS: BP 117/58
[2017-05-11 20:04] VITALS: BP 114/58
[2017-05-11 22:00] VITALS: BP 114/58
[2017-05-12] VITALS: BP 97/53
[2017-05-12 04:10] VITALS: BP 90/49
[2017-05-12 05:42] LABS: HEMATOCRIT 30.5 % (36.0-46.0); MCV 84.5 FL (83-99)
[2017-05-12 05:59] LABS: ANION GAP 9 MEQ/L (2-14); CHLORIDE 107 MEQ/L (99-109); GFR ESTIMATE (CALCULATED) > 59 mL/min/; GLUCOSE 108 mg/dL (70-99); POTASSIUM 3.6 MEQ/L (3.7-5.4); SAMPLE HEMOLYSIS CHECK 0; SAMPLE ICTERIC CHECK 0; SAMPLE LIPEMIA CHECK 0; SODIUM 139 MEQ/L (136-147); UREA NITROGEN (BUN) 12 mg/dL (9-23)
[2017-05-12 06:10] LABS: INTER. NORMALIZED RATIO 1.1; PROTHROMBIN TIME 11.7 SEC (10.2-12.9)
[2017-05-12 08:29] VITALS: BP 127/56
[2017-05-12 12:00] VITALS: BP 125/55; BP 126/64
[2017-05-12 16:04] VITALS: BP 111/57
[2017-05-12 19:49] VITALS: BP 124/58
[2017-05-13 00:04] VITALS: BP 85/50
[2017-05-13 02:52] VITALS: BP 116/56
[2017-05-13 07:31] LABS: HEMATOCRIT 32.9 % (36.0-46.0); MCV 83.1 FL (83-99)
[2017-05-13 07:40] VITALS: BP 132/60
[2017-05-13 07:46] LABS: INTER. NORMALIZED RATIO 1.3; PROTHROMBIN TIME 14.5 SEC (10.2-12.9)
[2017-05-13] MEDS ORDERED: LOVENOX100 MG/1 M SC (08:58)
[2017-05-13] MEDS ORDERED: COUMADIN10 MG PO (08:58)
[2017-05-13] MEDS ORDERED: COUMADIN7.5 MG PO ×2 (08:58→09:04)
[2017-05-13] MEDS ORDERED: COUMADIN1 MG PO (09:04)
[2017-05-13] MEDS ORDERED: SENNA PLUS TAB1 EACH PO (09:04)
[2017-05-13] MEDS ORDERED: OXYCONTIN10 MG PO (09:04)
[2017-05-13] MEDS ORDERED: CELECOXIB200 MG PO (09:04)
[2017-05-13] MEDS ORDERED: OXYCODONE HCL5 MG PO (09:04)
[2017-05-13 11:35] VITALS: BP 122/65
[2017-05-13 15:15] VITALS: BP 120/68
== END 2017-05-13 16:39 | DRG 470 ==
LOC: 3WEST 06:39 → 2SOUTH 06:39 → ENRESERV 14:03 → 3WEST 14:10 → 2SOUTH 14:47 → 3WEST 05-13 16:39
PROVIDERS: Orthopaedic Surgery
PROC: 0SRD0J9 Replacement of Left Knee Joint with Synthetic Substitute, Cemented, Open Approach (ICD-10-PCS; principal; 2017-05-11)
DX: M17.32 Unilateral post-traumatic osteoarthritis, left knee (principal); D62 Acute posthemorrhagic anemia; I49.3 Ventricular premature depolarization; M81.0 Age-related osteoporosis without current pathological fracture; G43.909 Migraine, unspecified, not intractable, without status migrainosus; E03.9 Hypothyroidism, unspecified; K21.9 Gastro-esophageal reflux disease without esophagitis; Z94.4 Liver transplant status; Z82.49 Family history of ischemic heart disease and other diseases of the circulatory system; Z87.442 Personal history of urinary calculi; Z86.711 Personal history of pulmonary embolism; Z86.718 Personal history of other venous thrombosis and embolism; Z79.01 Long term (current) use of anticoagulants
CPT/HCPCS: 80048; 85014; 85018; 85610; 93005; 97530 GO; 97530 GP; C1713; J0131; J0330; J1100; J1170; J1650; J1885; J2250; J2405; J3010; J3370; J7050; J7507; J7512; J7517

== ENCOUNTER 2017-09-08 15:08 | Inpatient (IN) | payer OTHER ==
[~2017-09-08] VITALS: Ht 172.7 cm; Wt 92.0 kg
[~2017-09-08 15:08] MED LIST changes: +ABILIFY10 MG PO; -ABILIFY5 MG PO; +CELECOXIB200 MG PO; +COUMADIN1 MG PO; +OXYCONTIN10 MG PO; +SENNA PLUS TAB1 EACH PO
[2017-09-08 17:42] LABS: HEMATOCRIT 38.8 % (36.0-46.0); HEMOGLOBIN 11.9 G/DL (11.9-15.5); MCH 24.1 PG (29.0-34.0); MCHC 30.7 G/DL (30.0-36.0); MCV 78.7 FL (83-99); RBC DIS.WIDTH-CV 15.5 % (11.8-14.6); RBC DIS.WIDTH-SD 44.6 % (39-53); RED BLOOD COUNT 4.93 M/uL (3.80-5.20)
[2017-09-08 18:13] LABS: ALBUMIN 3.1 G/DL (3.2-4.8); CHLORIDE 107 MEQ/L (99-109); POTASSIUM 3.7 MEQ/L (3.7-5.4); SODIUM 137 MEQ/L (136-147); TOTAL BILIRUBIN 0.5 MG/DL (0.0-1.0)
[2017-09-08 18:17] LABS: QUANTITATIVE HCG < 4.0 MIU/ML
[2017-09-08 18:18] LABS: ALKALINE PHOSPHATASE 234 IU/L (3-129); ALT (GPT) 17 IU/L (3-49); AST (GOT) 23 IU/L (2-34); CREATININE 0.8 MG/DL (0.6-1.3); GFR ESTIMATE (CALCULATED) > 59 mL/min/; GLUCOSE 150 mg/dL (70-99); LIPASE 38 U/L (1.0-51.0); TOTAL PROTEIN 6.5 G/DL (6.4-8.3); UREA NITROGEN (BUN) 9 mg/dL (9-23)
[2017-09-08 19:30] LABS: APPEARANCE CLOUDY ((CLEAR)); BILIRUBIN NEGATIVE; BLOOD SMALL; GLUCOSE (STRIP) NEGATIVE; KETONES NEGATIVE; LEUKOCYTES LARGE; NITRITE NEGATIVE; PROTEIN (STRIP) 30; SPECIFIC GRAVITY 1.012 (1.000-1.030)
[2017-09-08 19:31] LABS: PLAT.SUFFICIENCY ADEQUATE; PLATELET COUNT 213 K/uL (156-360)
[2017-09-08 19:32] LABS: COLOR YELLOW ((YELLOW))
[2017-09-08 19:44] LABS: BACTERIA 3+ /HPF; EPITHELIAL CELLS 1+ /HPF; MUCUS NONE SEEN /LPF; RED BLOOD CELLS 15-20 /HPF (0-5); UCUL ADDED? YES; WHITE BLOOD CELLS TNTC /HPF (0-5)
[2017-09-08] MEDS ORDERED: COUMADIN7.5 MG PO (20:32)
[2017-09-08] MEDS ORDERED: OXYCODONE HCL10 MG PO (20:34)
[2017-09-08] MEDS ORDERED: SENNA PLUS TAB1 EACH PO (20:35)
[2017-09-08] MEDS ORDERED: PAXIL20 MG PO (20:37)
[2017-09-08] MEDS ORDERED: LINZESS145 MCG PO (20:37)
[2017-09-08] MEDS ORDERED: TRAZODONE HCL50 MG PO (20:37)
[2017-09-08] MEDS ORDERED: ENULOSE10 GM/15 M PO (20:38)
[2017-09-08 22:24] LABS: TROP-I INTERPRETATION NEGATIVE; TROPONIN-I < 0.01 ng/mL (0.0-0.30)
[2017-09-08 22:30] VITALS: BP 133/67
[2017-09-09 04:52] VITALS: BP 105/52
[2017-09-09 06:36] LABS: TROP-I INTERPRETATION NEGATIVE; TROPONIN-I < 0.01 ng/mL (0.0-0.30)
[2017-09-09 07:24] VITALS: BP 108/76
[2017-09-09 07:31] LABS: CHLORIDE 109 MEQ/L (99-109); CREATININE 0.7 MG/DL (0.6-1.3); GFR ESTIMATE (CALCULATED) > 59 mL/min/; GLUCOSE 77 mg/dL (70-99); POTASSIUM 3.5 MEQ/L (3.7-5.4); SODIUM 139 MEQ/L (136-147); UREA NITROGEN (BUN) 10 mg/dL (9-23)
[2017-09-09 11:06] VITALS: BP 119/59
[2017-09-09 11:18] LABS: BASOPHIL (%) 0.5 % (0-1); EOSINOPHIL (%) 0.8 % (0-5); EOSINOPHIL COUNT 0.1 K/uL (0-0.3); HEMATOCRIT 35.8 % (36.0-46.0); HEMOGLOBIN 10.8 G/DL (11.9-15.5); IMMATURE GRANULOCYTE (%) 0.3 % (0.0-0.7); LYMPHOCYTE (%) 35.6 % (15-42); LYMPHOCYTE COUNT 2.7 K/uL (1.0-2.8); MCH 24.1 PG (29.0-34.0); MCHC 30.2 G/DL (30.0-36.0); MCV 79.9 FL (83-99); MONOCYTE (%) 10.5 % (3-12); MONOCYTE COUNT 0.8 K/uL (0-0.8); NEUTROPHIL (%) 52.3 % (45-76); PLATELET COUNT 197 K/uL (156-360); RBC DIS.WIDTH-CV 15.6 % (11.8-14.6); RBC DIS.WIDTH-SD 44.7 % (39-53); RED BLOOD COUNT 4.48 M/uL (3.80-5.20); WHITE BLOOD COUNT 7.6 K/uL (4.1-10.2)
[2017-09-09 12:58] LABS: TROP-I INTERPRETATION NEGATIVE; TROPONIN-I < 0.01 ng/mL (0.0-0.30)
[2017-09-09 13:08] LABS: PTT 64.2 SEC (25-37)
[2017-09-09 13:14] LABS: INTER. NORMALIZED RATIO 5.9
[2017-09-09 15:13] VITALS: BP 118/57
[2017-09-09 19:20] VITALS: BP 106/58
[2017-09-09 23:51] VITALS: BP 126/58
[2017-09-10 04:33] VITALS: BP 136/66
[2017-09-10 05:51] LABS: INTER. NORMALIZED RATIO 3.7
[2017-09-10 05:52] LABS: HEMATOCRIT 36.2 % (36.0-46.0); HEMOGLOBIN 10.9 G/DL (11.9-15.5); MCHC 30.1 G/DL (30.0-36.0); MCV 79.7 FL (83-99); PLATELET COUNT 196 K/uL (156-360); RBC DIS.WIDTH-CV 15.3 % (11.8-14.6); RBC DIS.WIDTH-SD 44.3 % (39-53); RED BLOOD COUNT 4.54 M/uL (3.80-5.20); WHITE BLOOD COUNT 7.4 K/uL (4.1-10.2)
[2017-09-10 06:28] LABS: CHLORIDE 112 MEQ/L (99-109); CREATININE 0.6 MG/DL (0.6-1.3); GFR ESTIMATE (CALCULATED) > 59 mL/min/; GLUCOSE 92 mg/dL (70-99); SODIUM 139 MEQ/L (136-147); UREA NITROGEN (BUN) 7 mg/dL (9-23)
[2017-09-10 06:30] LABS: POTASSIUM 4.3 MEQ/L (3.7-5.4)
[2017-09-10 07:34] VITALS: BP 136/71
[2017-09-10 11:50] VITALS: BP 122/65
[2017-09-10 15:47] VITALS: BP 111/46
[2017-09-10 20:00] VITALS: BP 106/49
[2017-09-11] VITALS (8 sets, daily range): BP systolic 91–132; BP diastolic 41–64
[2017-09-11 07:00] LABS: HEMATOCRIT 32.2 % (36.0-46.0); HEMOGLOBIN 9.7 G/DL (11.9-15.5); MCH 23.7 PG (29.0-34.0); MCHC 30.1 G/DL (30.0-36.0); MCV 78.7 FL (83-99); PLATELET COUNT 195 K/uL (156-360); RBC DIS.WIDTH-CV 15.8 % (11.8-14.6); RED BLOOD COUNT 4.09 M/uL (3.80-5.20); WHITE BLOOD COUNT 6.4 K/uL (4.1-10.2)
[2017-09-11 07:18] LABS: INTER. NORMALIZED RATIO 1.9
[2017-09-11 07:27] LABS: CHLORIDE 111 MEQ/L (99-109); CREATININE 0.6 MG/DL (0.6-1.3); GFR ESTIMATE (CALCULATED) > 59 mL/min/; GLUCOSE 94 mg/dL (70-99); POTASSIUM 3.5 MEQ/L (3.7-5.4); SODIUM 138 MEQ/L (136-147); UREA NITROGEN (BUN) 9 mg/dL (9-23)
[2017-09-12 06:54] LABS: INTER. NORMALIZED RATIO 1.3
[2017-09-12 07:27] VITALS: BP 114/61
[2017-09-12 12:57] LABS: HEMATOCRIT 34.3 % (36.0-46.0); HEMOGLOBIN 10.3 G/DL (11.9-15.5); MCH 23.8 PG (29.0-34.0); MCV 79.2 FL (83-99); PLATELET COUNT 207 K/uL (156-360); RBC DIS.WIDTH-CV 15.7 % (11.8-14.6); RBC DIS.WIDTH-SD 44.7 % (39-53); RED BLOOD COUNT 4.33 M/uL (3.80-5.20); WHITE BLOOD COUNT 5.5 K/uL (4.1-10.2)
[2017-09-12 13:17] LABS: CHLORIDE 111 MEQ/L (99-109); MAGNESIUM 1.2 mg/dl (1.3-2.7); POTASSIUM 3.9 MEQ/L (3.7-5.4); SODIUM 138 MEQ/L (136-147)
[2017-09-12 13:25] LABS: CREATININE 0.7 MG/DL (0.6-1.3); GFR ESTIMATE (CALCULATED) > 59 mL/min/; GLUCOSE 141 mg/dL (70-99); UREA NITROGEN (BUN) 9 mg/dL (9-23)
[2017-09-12 15:09] VITALS: BP 114/56
[2017-09-13 00:15] VITALS: BP 122/67
[2017-09-13 06:18] LABS: INTER. NORMALIZED RATIO 1.3
[2017-09-13 07:56] VITALS: BP 11/56
[2017-09-13 16:26] VITALS: BP 115/62
[2017-09-14 00:10] VITALS: BP 109/61
[2017-09-14 07:05] LABS: INTER. NORMALIZED RATIO 1.6
[2017-09-14 07:11] VITALS: BP 133/66
[2017-09-14] MEDS ORDERED: MIDODRINE HCL5 MG PO (11:54)
[2017-09-14] MEDS ORDERED: TAMSULOSIN HCL0.4 MG PO (11:54)
[2017-09-14] MEDS ORDERED: COUMADIN7.5 MG PO (11:56)
[2017-09-14] MEDS ORDERED: OXYCODONE HCL10 MG PO (12:03)
[2017-09-14] MEDS ORDERED: CIPROFLOXACIN500 M1 PO (12:04)
[2017-09-14 15:14] VITALS: BP 122/55
== END 2017-09-14 16:43 | DRG 312 ==
LOC: EME 15:08 → 5SOUTH 20:13 → EDOF 20:13 → ENRESERV 20:15 → 5SOUTH 22:22
PROVIDERS: Emergency Medicine; Hospitalist; Internal Medicine; Physician Assistant
DX: I95.1 Orthostatic hypotension (principal); N13.6 Pyonephrosis; N39.0 Urinary tract infection, site not specified; S82.831A Other fracture of upper and lower end of right fibula, initial encounter for closed fracture; S82.436A Nondisplaced oblique fracture of shaft of unspecified fibula, initial encounter for closed fracture; E66.01 Morbid (severe) obesity due to excess calories; K21.9 Gastro-esophageal reflux disease without esophagitis; I10 Essential (primary) hypertension; E03.9 Hypothyroidism, unspecified; E78.5 Hyperlipidemia, unspecified; M60.9 Myositis, unspecified; B96.20 Unspecified Escherichia coli [E. coli] as the cause of diseases classified elsewhere; F32.9 Major depressive disorder, single episode, unspecified; F41.9 Anxiety disorder, unspecified; M17.10 Unilateral primary osteoarthritis, unspecified knee; G25.0 Essential tremor; K75.4 Autoimmune hepatitis; W19.XXXA Unspecified fall, initial encounter; Y92.009 Unspecified place in unspecified non-institutional (private) residence as the place of occurrence of the external cause; Z68.30 Body mass index [BMI] 30.0-30.9, adult; Z79.01 Long term (current) use of anticoagulants; Z94.4 Liver transplant status; Z79.899 Other long term (current) drug therapy; Z98.84 Bariatric surgery status; Z96.652 Presence of left artificial knee joint; Z90.710 Acquired absence of both cervix and uterus; Z90.49 Acquired absence of other specified parts of digestive tract; Z87.442 Personal history of urinary calculi; Z87.440 Personal history of urinary (tract) infections; Z86.73 Personal history of transient ischemic attack (TIA), and cerebral infarction without residual deficits; Z86.718 Personal history of other venous thrombosis and embolism; Z86.711 Personal history of pulmonary embolism; Z86.14 Personal history of Methicillin resistant Staphylococcus aureus infection; Z82.49 Family history of ischemic heart disease and other diseases of the circulatory system
CPT/HCPCS: 70450; 73502; 73560; 73610; 73721; 74018; 74176; 80048; 80053; 80170; 81003; 83690; 83735; 84484; 84702; 85025; 85027; 85610; 85730; 87077; 87086; 87186; 93005; 93306; 99281; 99285; J0692; J1580; J1650; J1885; J2270; J3475; J7030; J7050; J7120; J7507; J7512; J7517

== ENCOUNTER 2017-10-18 08:19 | Day surgery (SDC) | payer OTHER ==
[~2017-10-18] VITALS: Ht 172.7 cm; Wt 86.6 kg
[~2017-10-18 08:19] MED LIST changes: +AMOXICILLIN875 MG PO; +CIPROFLOXACIN500 M1 PO; +ENULOSE10 GM/15 M PO; +LINZESS145 MCG PO; +LOPRESSOR25 MG PO; +MIDODRINE HCL5 MG PO; +PAXIL10 MG PO; +TAMSULOSIN HCL0.4 MG PO; +TRAZODONE HCL50 MG PO; +XANAX0.5 MG PO
[2017-10-18 09:01] VITALS: BP 137/60
[2017-10-18 09:03] LABS: INTER. NORMALIZED RATIO 1.1
[2017-10-18 09:05] LABS: PTT 27.7 SEC (25-37)
[2017-10-18 12:13] VITALS: BP 115/68
[2017-10-18 12:51] VITALS: BP 124/61
== END 2017-10-18 12:55 | disposition home or self-care (01) ==
LOC: SDC 08:19
PROVIDERS: Urology
PROC: 0T768DZ Dilation of Right Ureter with Intraluminal Device, Via Natural or Artificial Opening Endoscopic (ICD-10-PCS; principal; 2017-10-18)
PROC: 0TF68ZZ Fragmentation in Right Ureter, Via Natural or Artificial Opening Endoscopic (ICD-10-PCS; principal; 2017-10-18)
PROC: 0TC68ZZ Extirpation of Matter from Right Ureter, Via Natural or Artificial Opening Endoscopic (ICD-10-PCS; principal; 2017-10-18)
DX: N20.1 Calculus of ureter (principal); E03.9 Hypothyroidism, unspecified; K21.9 Gastro-esophageal reflux disease without esophagitis; Z86.14 Personal history of Methicillin resistant Staphylococcus aureus infection; Z86.718 Personal history of other venous thrombosis and embolism; Z79.01 Long term (current) use of anticoagulants; Z88.2 Allergy status to sulfonamides
CPT/HCPCS: 74420; 82365 90; 85610; 85730; 87641; C1758; C2625; J0330; J1580; J1720; J2405; J3010; J7050; Q0175; S0030

== ENCOUNTER 2017-10-20 17:41 | Observation (INO) | payer OTHER ==
[~2017-10-20] VITALS: Ht 172.7 cm; Wt 92.7 kg
[2017-10-20 18:22] LABS: HEMATOCRIT 34.1 % (36.0-46.0); HEMOGLOBIN 10.6 G/DL (11.9-15.5); MCH 25.3 PG (29.0-34.0); MCHC 31.1 G/DL (30.0-36.0); MCV 81.4 FL (83-99); RBC DIS.WIDTH-CV 17.7 % (11.8-14.6); RBC DIS.WIDTH-SD 52.8 % (39-53); RED BLOOD COUNT 4.19 M/uL (3.80-5.20); WHITE BLOOD COUNT 15.7 K/uL (4.1-10.2)
[2017-10-20 18:38] LABS: INTER. NORMALIZED RATIO 1.7
[2017-10-20 18:40] LABS: PTT 21.9 SEC (25-37)
[2017-10-20 18:43] LABS: CHLORIDE 106 mEq/L (99-109); POTASSIUM 4.2 mEq/L (3.7-5.4); SODIUM 137 mEq/L (136-147)
[2017-10-20 18:45] LABS: GLUCOSE 130 mg/dL (70-99); TOTAL PROTEIN 5.9 g/dL (6.4-8.3)
[2017-10-20 18:47] LABS: TOTAL BILIRUBIN 0.3 mg/dL (0.0-1.0)
[2017-10-20 18:48] LABS: ALKALINE PHOSPHATASE 220 IU/L (3-129)
[2017-10-20 18:49] LABS: CREATININE 0.9 mg/dL (0.6-1.3); GFR ESTIMATE (CALCULATED) > 59 mL/min/
[2017-10-20 18:50] LABS: AST (GOT) 33 IU/L (2-34); UREA NITROGEN (BUN) 9 mg/dL (9-23)
[2017-10-20 18:51] LABS: ALT (GPT) 14 IU/L (3-49)
[2017-10-20 18:59] LABS: QUANTITATIVE HCG < 4.0 MIU/ML
[2017-10-20 19:00] LABS: PLAT.SUFFICIENCY ADEQUATE; PLATELET CLUMPS PRESENT - PLATELET COUNT APPEARS ADQ.; PLATELET COUNT UNABLE TO REPORT K/uL (156-360)
[2017-10-20 19:47] LABS: APPEARANCE CLOUDY ((CLEAR)); BILIRUBIN NEGATIVE; BLOOD LARGE; GLUCOSE (STRIP) NEGATIVE; KETONES 5; LEUKOCYTES TRACE; NITRITE NEGATIVE; PROTEIN (STRIP) 100; SPECIFIC GRAVITY 1.009 (1.000-1.030); UROBILINOGEN 0.2 MG/DL (0.2-1.0)
[2017-10-20 19:51] LABS: COLOR RED ((YELLOW))
[2017-10-20 20:23] LABS: RED BLOOD CELLS TNTC /HPF (0-5); UCUL ADDED? YES
[2017-10-20 23:37] LABS: HEMATOCRIT 31.2 % (36.0-46.0); HEMOGLOBIN 9.9 G/DL (11.9-15.5); MCH 25.4 PG (29.0-34.0); MCHC 31.7 G/DL (30.0-36.0); RBC DIS.WIDTH-CV 17.4 % (11.8-14.6); RBC DIS.WIDTH-SD 50.6 % (39-53); WHITE BLOOD COUNT 16.2 K/uL (4.1-10.2)
[2017-10-20] MEDS ORDERED: COUMADIN7.5 MG PO (23:39)
[2017-10-20] MEDS ORDERED: CIPRO500 MG PO (23:44)
[2017-10-21 00:15] LABS: PLAT.SUFFICIENCY ADEQUATE; PLATELET COUNT 225 K/uL (156-360)
[2017-10-21 03:18] LABS: CHLORIDE 104 mEq/L (99-109); POTASSIUM 3.3 mEq/L (3.7-5.4); SODIUM 136 mEq/L (136-147)
[2017-10-21 03:19] LABS: GLUCOSE 127 mg/dL (70-99)
[2017-10-21 03:23] LABS: CREATININE 0.7 mg/dL (0.6-1.3); GFR ESTIMATE (CALCULATED) > 59 mL/min/
[2017-10-21 03:24] LABS: UREA NITROGEN (BUN) 7 mg/dL (9-23)
[2017-10-21 04:42] VITALS: BP 130/68
[2017-10-21 06:59] LABS: HEMATOCRIT 30.6 % (36.0-46.0); HEMOGLOBIN 9.4 G/DL (11.9-15.5); MCH 24.9 PG (29.0-34.0); MCHC 30.7 G/DL (30.0-36.0); MCV 81.2 FL (83-99); NRBC (%) 0.3 /100 WBC (0-0); RBC DIS.WIDTH-CV 17.7 % (11.8-14.6); RBC DIS.WIDTH-SD 52.4 % (39-53); RED BLOOD COUNT 3.77 M/uL (3.80-5.20); WHITE BLOOD COUNT 15.4 K/uL (4.1-10.2)
[2017-10-21 07:26] LABS: PLAT.SUFFICIENCY ADEQUATE; PLATELET COUNT 200 K/uL (156-360)
[2017-10-21 07:43] VITALS: BP 141/62
[2017-10-21 11:55] VITALS: BP 134/62
[2017-10-21 15:34] VITALS: BP 110/53
[2017-10-21 20:10] VITALS: BP 123/60
[2017-10-21 23:21] VITALS: BP 120/56
[2017-10-22 03:25] VITALS: BP 131/58
[2017-10-22 07:23] VITALS: BP 122/60
[2017-10-22 07:34] LABS: BASOPHIL (%) 0.5 % (0-1); EOSINOPHIL (%) 0.9 % (0-5); EOSINOPHIL COUNT 0.1 K/uL (0-0.3); HEMATOCRIT 28.6 % (36.0-46.0); HEMOGLOBIN 8.8 G/DL (11.9-15.5); IMMATURE GRANULOCYTE (%) 0.3 % (0.0-0.7); LYMPHOCYTE (%) 22.4 % (15-42); MCH 24.7 PG (29.0-34.0); MCHC 30.8 G/DL (30.0-36.0); MCV 80.3 FL (83-99); MONOCYTE (%) 10.4 % (3-12); MONOCYTE COUNT 0.9 K/uL (0-0.8); NEUTROPHIL (%) 65.5 % (45-76); NEUTROPHIL COUNT 5.8 K/uL (1.8-6.4); PLATELET COUNT 175 K/uL (156-360); RBC DIS.WIDTH-CV 17.5 % (11.8-14.6); RBC DIS.WIDTH-SD 51.6 % (39-53); RED BLOOD COUNT 3.56 M/uL (3.80-5.20); WHITE BLOOD COUNT 8.8 K/uL (4.1-10.2)
[2017-10-22 11:05] VITALS: BP 118/58
[2017-10-22 14:59] VITALS: BP 120/59
[2017-10-22 20:15] VITALS: BP 119/63
[2017-10-23 00:13] VITALS: BP 115/58
[2017-10-23 03:44] VITALS: BP 102/57
[2017-10-23 06:53] LABS: HEMATOCRIT 29.4 % (36.0-46.0); MCH 25.1 PG (29.0-34.0); MCHC 30.6 G/DL (30.0-36.0); MCV 81.9 FL (83-99); PLATELET COUNT 187 K/uL (156-360); RBC DIS.WIDTH-CV 17.8 % (11.8-14.6); RBC DIS.WIDTH-SD 53.5 % (39-53); RED BLOOD COUNT 3.59 M/uL (3.80-5.20); WHITE BLOOD COUNT 7.2 K/uL (4.1-10.2)
[2017-10-23 07:20] VITALS: BP 131/62
[2017-10-23] MEDS ORDERED: TOPIRAMATE100 MG PO (09:45)
[2017-10-23] MEDS ORDERED: LOVENOX100 MG/1 M SC (09:45)
[2017-10-23] MEDS ORDERED: BUTALB-APAP-CA1 EACH PO (09:45)
[2017-10-23] MEDS ORDERED: CEFTIN500 MG PO (09:45)
== END 2017-10-23 13:30 | disposition home or self-care (01) ==
LOC: EME 17:41 → EDOF 10-21 01:54 → 2EAST 10-21 01:54 → ENRESERV 10-21 02:00 → 2EAST 10-21 04:35
PROVIDERS: Emergency Medicine; Obstetrics & Gynecology; Physician Assistant
DX: N93.0 Postcoital and contact bleeding (principal); I95.1 Orthostatic hypotension; N39.0 Urinary tract infection, site not specified; Z94.4 Liver transplant status; Z92.25 Personal history of immunosuppression therapy; Z79.899 Other long term (current) drug therapy; Z90.710 Acquired absence of both cervix and uterus; I10 Essential (primary) hypertension; E03.9 Hypothyroidism, unspecified; K21.9 Gastro-esophageal reflux disease without esophagitis; Z86.711 Personal history of pulmonary embolism; Z86.718 Personal history of other venous thrombosis and embolism; Z79.01 Long term (current) use of anticoagulants; F41.9 Anxiety disorder, unspecified; D64.9 Anemia, unspecified; E83.51 Hypocalcemia; E87.6 Hypokalemia; Z98.84 Bariatric surgery status; Z90.49 Acquired absence of other specified parts of digestive tract; Z98.890 Other specified postprocedural states; Z82.0 Family history of epilepsy and other diseases of the nervous system; Z82.49 Family history of ischemic heart disease and other diseases of the circulatory system; Z88.8 Allergy status to other drugs, medicaments and biological substances; Z88.2 Allergy status to sulfonamides; Z88.1 Allergy status to other antibiotic agents
CPT/HCPCS: 74177; 80048; 80053; 81003; 83605; 84702; 85025; 85027; 85610; 85730; 87040; 87086; 87641; 99281; 99284; G0378; J0696; J2405; J7030; J7507; J7512; J7517